=== PATIENT | male | born 1970 | race African-American/Black ===

== ENCOUNTER 2020-12-11 18:25 | Emergency (ER) | payer MEDICAID ==
[~2020-12-11] VITALS: Ht 177.8 cm; Wt 95.0 kg
[2020-12-11 22:03] LABS: HEMATOCRIT. 46.5 % (42.0-52.0); HEMOGLOBIN. 16.2 g/dL (14.0-18.0); LYMPHOCYTES % 43.9 % (20.0-50.0); MEAN CORPUSCULAR HEMOGLOBIN 30.2 pg (28.0-32.0); MEAN CORPUSCULAR VOLUME 86.4 fL (80.0-94.0); MEAN PLATELET VOLUME 8.5 fl (7.4-10.4); NEUTROPHILS % 41.1 % (40.0-76.0); PLATELET 184 x1000/uL (130-400); RED BLOOD CELL COUNT 5.38 mill/uL (4.7-6.1); RED CELL DISTRIBUTION WIDTH 13.5 % (11.6-14.6)
[2020-12-11 22:05] LABS: CHLORIDE 107 mEq/L (98-107)
[2020-12-11 22:08] LABS: INR 1.1; PROTHROMBIN TIME 11.5 sec (9.6-11.0)
[2020-12-11] MEDS ORDERED: HYDROCODONE/ACETAMINOPHEN 5/325MG TABLET PO ONE (22:15)
[2020-12-12 00:43] LABS: CLARITY URINE CLEAR (CLEAR); COLOR URINE YELLOW (YELLOW); KETONES URINE NEGATIVE (NEGATIVE); LEUKOCYTE ESTERASE URINE NEGATIVE (NEGATIVE); NITRITE URINE NEGATIVE (NEGATIVE); OCCULT BLOOD URINE NEGATIVE (NEGATIVE); PROTEIN URINE NEGATIVE (NEGATIVE); UROBILINOGEN URINE 0.2 E.U./dL (0.2-1.0)
[2020-12-12 03:07] VITALS: BP 93/66
== END 2020-12-12 03:10 | disposition home or self-care (01) ==
LOC: ER 18:25
DX: R10.9 Unspecified abdominal pain (principal); M89.8X8 Other specified disorders of bone, other site; Z98.890 Other specified postprocedural states
CPT/HCPCS: 36415; 74176; 80053; 81003; 83690; 85025; 85610; 99284; Z7610

== ENCOUNTER 2021-12-14 14:10 | Emergency (ER) | payer OTHER ==
[~2021-12-14] VITALS: Ht 180.3 cm; Wt 96.0 kg
[2021-12-14 14:56] VITALS: BP 154/94
== END 2021-12-14 14:56 | disposition home or self-care (01) ==
LOC: ER 14:27
DX: S01.01XA Laceration without foreign body of scalp, initial encounter (principal); X58.XXXA Exposure to other specified factors, initial encounter; Y93.9 Activity, unspecified; Y92.9 Unspecified place or not applicable; Z98.890 Other specified postprocedural states; Z02.79 Encounter for issue of other medical certificate
CPT/HCPCS: 99283

== ENCOUNTER 2022-03-06 08:21 | Emergency (ER) | payer MEDICAID, OTHER ==
[~2022-03-06] VITALS: Ht 182.9 cm; Wt 93.0 kg
[2022-03-06 08:26] VITALS: BP 107/74
[2022-03-06] MEDS ORDERED: ACETAMINOPHEN 325MG TABLET PO STA (11:54)
== END 2022-03-06 15:06 | disposition left against medical advice (07) ==
LOC: ER 08:21
DX: S09.8XXA Other specified injuries of head, initial encounter (principal); S01.01XA Laceration without foreign body of scalp, initial encounter; W20.8XXA Other cause of strike by thrown, projected or falling object, initial encounter; Y93.89 Activity, other specified; Y92.9 Unspecified place or not applicable
CPT/HCPCS: 99281